=== PATIENT | female | born 1930 | race African-American/Black ===

== ENCOUNTER 2017-04-23 17:06 | Outpatient (CLI) | payer MEDICARE ==
--- NOTE | 2017-04-24 10:51 | CT ---
CT BRAIN NONCONTRAST: DATE: 04/23/2017 TIME: 5:22 p.m. HISTORY: An 87-year-old female with dizziness, tremors in right hand, and hypesthesia of right hand, for a fe w days. This study is being submitted for dictation for the first time on [facility], at approximately 8 a .m. on the following day, 04/24/2017. COMPARISON: CT from 06/07/2013. FINDINGS: Tiny focus of intracranial gas at midline, in the anterior-inferior aspect of the anterior cranial f clarissa, is unchanged compared to 2013. This probably represents a pneumatized portion of the hellen g camron, with communication to the frontal or ethmoid sinuses. Alternatively, this could represent a t iny amount of fat in a tiny lipoma or dermoid (axial image 10 of 34, series 2). Slightly posterior and slightly superior to that, there are paired tiny hyperdense, tubular structur es, near midline, which probably represent bilateral A1 segments of the anterior cerebral arteries ( axial images 12 and 13 of 34, series 2), with atherosclerotic calcification. These have not changed since 2013. The lateral and third ventricles are mildly dilated, greater than on the previous CT. This is proba robert on an ex vacuo basis, due to central parenchymal volume loss, rather than a mild degree of commu nicating hydrocephalus, such as a normal pressure hydrocephalus. However, clinical correlation is r ecommended (is there gait apraxia, urinary incontinence, and/or dementia ?). There are moderate chr onic ischemic white matter changes in the cerebrum, which have progressed since the previous CT. Th ere is no acute intraaxial or extraaxial hemorrhage. There is diffuse parenchymal volume loss. No mass effect, midline shift, extraaxial fluid collection, or calvarial fracture. The visualized uppe r portions of the paranasal sinuses and the bilateral tympanomastoid cavities are grossly clear. There is encephalomalacia and gliosis in the anterior portion of the left temporal lobe (axial image s 6, 7, and 8 of 34, series 2). In retrospect, these were also present on the [address] CT. IMPRESSION: 1. No acute intracranial findings. 2. Involution changes and moderate chronic ischemic white matter changes. 3. Encephalomalacia and gliosis in the anterior portion of the left temporal lobe, including the te mporal tip, is evidence for previous traumatic injury. 4. Mild ventriculomegaly. FAY Johnson POS: [facility]
== END 2017-04-23 17:07 | disposition home or self-care (01) ==
LOC: NAV CT 17:06
PROVIDERS: ATTEND Internal Medicine
DX: R42 Dizziness and giddiness (principal); G93.89 Other specified disorders of brain
CPT/HCPCS: 70450

== ENCOUNTER 2017-12-07 16:24 | Emergency (ER) | payer MEDICARE ==
[2017-12-07 17:08] LABS: #Basophils 0.1 thou/uL (0.0-0.2); #Eosinphils 0.1 thou/uL (0.0-0.7); #Lymphocytes 1.2 thou/uL (1.20-3.40); #Monocytes 0.6 thou/uL (0.11-0.59); #Neutrophils 2.7 thou/uL (1.40-6.50); %Basophils 1.1 % (0.0-1.0); %Eosinophils 2.4 % (0.0-10.0); %Lymphocytes 25.3 % (21.0-51.0); %Monocytes 12.1 % (0.0-10.0); %Neutrophils 59.1 % (42.0-75.0); Hemoglobin 11.5 g/dL (12.0-16.0); Mean Corpuscular HGB CONC 31.8 g/dL (32.0-36.0); Mean Corpuscular Hemoglobin 28.1 pg (27.0-31.0); Mean Corpuscular Volume 88.2 fl (81.0-99.0); Mean Platelet Volume 10.1 fL (7.4-10.4); Platelet Count 138 thou/uL (130-400); RBC Distribution Width 12.2 % (11.5-14.5); Red Blood Cell (RBC) Count 4.09 mill/uL (4.20-5.40); White Blood Cell (WBC) Count 4.6 thou/uL (4.8-10.8)
[2017-12-07 17:15] LABS: INR-International Normal Ratio 1.3; PTT 34.7 SEC (22.9-36.1); Prothrombin Time 16.8 SEC (12.0-14.7)
[2017-12-07 17:20] LABS: ALT (SGPT) 9 U/L (8-55); AST (SGOT) 18 U/L (5-34); Albumin 3.4 g/dL (3.4-4.8); Alkaline Phosphatase 51 U/L (40-150); Anion Gap 12 mmol/L (10-20); BUN (Urea Nitrogen) 15 mg/dL (9.8-20.1); Bilirubin, Total 0.3 mg/dL (0.2-1.2); Calc. Creatinine Clearance 0 mL/min (70-130); Calcium 8.9 mg/dL (7.8-10.44); Carbon Dioxide 26 mmol/L (23-31); Chloride 107 mmol/L (98-107); Estimated GFR-MDRD 77; Globulin 2.7 g/dL (2.4-3.5); Glucose 93 mg/dL (83-110); Potassium 3.9 mmol/L (3.5-5.1); Protein, Total 6.1 g/dL (6.0-8.3); Sodium 141 mmol/L (136-145)
--- NOTE | 2017-12-07 18:05 | RAD ---
TWO VIEWS OF THE RIGHT HUMERUS: 12/07/17 INDICATION: Right arm pain after fall. IMPRESSION: No acute fracture or subluxation is evident. 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 Soft tissue is normal appearing. POS: [facility]
--- NOTE | 2017-12-07 19:32 | CT ---
CT OF THE BRAIN WITHOUT CONTRAST 12/07/17 INDICATION: History of fall three days ago. COMPARISON: Prior exam dated 04/13/17. FINDINGS: There is mild to moderate chronic small vessel white matter ischemic change. Septum pellucidum and th ird ventricle are midline. No definite acute infarct, hemorrhage, or hydrocephalus is present. Mastoi d air cells are clear. The paranasal sinuses are clear. The skull is intact. IMPRESSION: No acute intracranial abnormality. Stable chronic small vessel white matter ischemic change. Calcific ation seen within the anterior cerebral midline possibly related to calcifications within the anterio r cerebral arteries. Similar to the comparison examination in 2017. POS: [facility]
--- NOTE | 2017-12-07 19:41 | CT ---
CT OF THE PELVIS WITHOUT CONTRAST: 12/07/17 INDICATION: Fall with concern for pelvic injury, predominantly on the right The patient has bruising in the right upper arm. Patient has pain in the right hip and low back. FINDINGS: There is scattered degenerative and osteoarthritic change. There is diffuse osteopenia. No definite a cute fracture or subluxation is evident. There is scattered vascular calcifications. Small amount of free fluid is present within the pelvis. Bladder, rectum and perirectal soft tissues are unremarkable . There is a fibroid uterus in place. IMPRESSION: 1. No acute fracture or subluxation. 2. Diffuse osteopenia. 3. Fibroid uterus. 4. Nonspecific mild free fluid in the pelvis. POS: [facility]
--- NOTE | 2017-12-07 20:00 | CT ---
CT OF THE LUMBAR SPINE WITHOUT CONTRAST 12/07/17 INDICATION: Fall with low back pain. FINDINGS: There is diffuse osteopenia. 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 there is par tial sacralization of L5. There is vacuum disc phenomenon within L4-5, L3-4, and L2-3. There are prom inent calcifications involving the abdominal aorta. There is a 3.6 mm suspected renovascular calcification seen involving the right kidney. IMPRESSION: 1. No acute fracture or subluxation demonstrated. 2. Moderate to severe multilevel spondylosis of the lumbar spine. 3. Partial sacralization of L5. POS: [facility]
== END 2017-12-07 18:37 | disposition home or self-care (01) ==
LOC: NAV ERS 16:24
DX: S40.021A Contusion of right upper arm, initial encounter (principal); S30.0XXA Contusion of lower back and pelvis, initial encounter; S70.01XA Contusion of right hip, initial encounter; I10 Essential (primary) hypertension; E78.5 Hyperlipidemia, unspecified; F41.9 Anxiety disorder, unspecified; F32.9 Major depressive disorder, single episode, unspecified; Z79.899 Other long term (current) drug therapy; Z79.01 Long term (current) use of anticoagulants; Z79.82 Long term (current) use of aspirin; W01.198A Fall on same level from slipping, tripping and stumbling with subsequent striking against other object, initial encounter
CPT/HCPCS: 70450; 72131; 72192; 80053; 85025; 85610; 85730